=== PATIENT | male | born 1955 | race Caucasian/White ===

== ENCOUNTER → 2019-06-28 | Outpatient (CLI) | payer OTHER | LOC: COL.RAD 14:42 | DX: M47.22 Other spondylosis with radiculopathy, cervical region (principal); M48.02 Spinal stenosis, cervical region; G56.01 Carpal tunnel syndrome, right upper limb ==

== ENCOUNTER → 2019-08-17 | Outpatient (CLI) | payer MEDICARE, OTHER | LOC: COL.RAD 08:58 | DX: M47.22 Other spondylosis with radiculopathy, cervical region (principal) ==